=== PATIENT | female | born 1985 | race Caucasian/White ===

== ENCOUNTER 2017-03-10 22:31 | Emergency (ER) | payer OTHER ==
[~2017-03-10] VITALS: Ht 165.1 cm; Wt 53.2 kg
[2017-03-10 23:29] LABS: BASOPHIL COUNT 0.1 K/uL (0-0.1); EOSINOPHIL (%) 1.5 % (0-5); EOSINOPHIL COUNT 0.2 K/uL (0-0.3); IMMATURE GRANULOCYTE (%) 0.4 % (0.0-0.7); INSTRUMENT ABS NEUTROPHIL CT 5.9 K/uL; LYMPHOCYTE COUNT 2.8 K/uL (1.0-2.8); MCH 27.1 PG (29.0-34.0); MCHC 32.8 G/DL (30.0-36.0); MCV 82.6 FL (83-99); MEAN PLAT.VOLUME 10.4 uM^3 (9.5-12.4); MONOCYTE (%) 7.8 % (3-12); MONOCYTE COUNT 0.8 K/uL (0-0.8); NEUTROPHIL (%) 60.4 % (45-76); NEUTROPHIL COUNT 5.9 K/uL (1.8-6.4); PLATELET COUNT 237 K/uL (156-360); RBC DIS.WIDTH-CV 12.8 % (11.8-14.6); RBC DIS.WIDTH-SD 38.9 % (39-53); RED BLOOD COUNT 4.72 M/uL (3.80-5.20); WHITE BLOOD COUNT 9.7 K/uL (4.1-10.2)
[2017-03-10 23:40] LABS: D-DIMER ELISA < 0.15 mg/L FEU (< 0.57)
[2017-03-10 23:43] LABS: CHLORIDE 104 mEq/L (99-109); POTASSIUM 3.4 mEq/L (3.7-5.4); SODIUM 137 mEq/L (136-147)
[2017-03-10 23:45] LABS: GLUCOSE 100 mg/dL (70-99)
[2017-03-10 23:46] LABS: ANION GAP 12 MEQ/L (2-14)
[2017-03-10 23:48] LABS: GFR ESTIMATE (CALCULATED) > 59 mL/min/
[2017-03-10 23:49] LABS: UREA NITROGEN (BUN) 17 mg/dL (9-23)
[2017-03-10 23:51] LABS: TROP-I INTERPRETATION NEGATIVE; TROPONIN-I < 0.01 ng/mL (0.0-0.30)
[2017-03-11] MEDS ORDERED: XANAX0.25 MG PO (00:35)
[2017-03-11 01:07] VITALS: BP 120/84
== END 2017-03-11 01:10 | disposition home or self-care (01) ==
LOC: EME 22:31
PROVIDERS: Emergency Medicine
DX: R07.9 Chest pain, unspecified (principal)
CPT/HCPCS: 71020; 80048; 84484; 85025; 85379; 93005; 99281; 99284

== ENCOUNTER 2017-12-27 01:45 | Inpatient (IN) | payer BC ==
[2017-12-27] VITALS (23 sets, daily range): BP systolic 104–129; BP diastolic 59–81
[~2017-12-27] VITALS: Ht 165.1 cm; Wt 61.2 kg
[~2017-12-27 01:45] MED LIST: XANAX0.25 MG PO
[2017-12-27] MEDS ORDERED: PRENATAL TABLE1 EAC3 PO (02:40)
[2017-12-27 03:37] LABS: BASOPHIL (%) 0.6 % (0-1); BASOPHIL COUNT 0.1 K/uL (0-0.1); EOSINOPHIL (%) 1.7 % (0-5); EOSINOPHIL COUNT 0.2 K/uL (0-0.3); HEMATOCRIT 37.3 % (36.0-46.0); HEMOGLOBIN 12.2 G/DL (11.9-15.5); IMMATURE GRANULOCYTE (%) 1.6 % (0.0-0.7); LYMPHOCYTE (%) 22.3 % (15-42); LYMPHOCYTE COUNT 2.4 K/uL (1.0-2.8); MCH 28.1 PG (29.0-34.0); MCHC 32.7 G/DL (30.0-36.0); MCV 85.9 FL (83-99); MONOCYTE (%) 7.5 % (3-12); MONOCYTE COUNT 0.8 K/uL (0-0.8); NEUTROPHIL (%) 66.3 % (45-76); NEUTROPHIL COUNT 7.2 K/uL (1.8-6.4); PLATELET COUNT 253 K/uL (156-360); RBC DIS.WIDTH-CV 13.6 % (11.8-14.6); RBC DIS.WIDTH-SD 42.4 % (39-53); RED BLOOD COUNT 4.34 M/uL (3.80-5.20); WHITE BLOOD COUNT 10.8 K/uL (4.1-10.2)
[2017-12-27] MEDS ORDERED: IBUPROFEN800 MG PO (16:17)
[2017-12-28 08:04] VITALS: BP 111/71
[2017-12-28 22:33] VITALS: BP 122/66
[2017-12-29 07:45] VITALS: BP 106/77
[2017-12-29 13:55] VITALS: BP 117/82
== END 2017-12-29 15:55 | disposition home or self-care (01) | DRG 775 ==
LOC: LDRP-OP 01:45 → 2WEST 01:46 → LDRP-OP 03-02 11:40
PROVIDERS: Advanced Practice Midwife
PROC: 10E0XZZ Delivery of Products of Conception, External Approach (ICD-10-PCS; principal; 2017-12-27)
PROC: 00HU33Z Insertion of Infusion Device into Spinal Canal, Percutaneous Approach (ICD-10-PCS; principal; 2017-12-27)
PROC: 0HQ9XZZ Repair Perineum Skin, External Approach (ICD-10-PCS; principal; 2017-12-27)
PROC: 3E0R3BZ Introduction of Anesthetic Agent into Spinal Canal, Percutaneous Approach (ICD-10-PCS; principal; 2017-12-27)
DX: O70.0 First degree perineal laceration during delivery (principal); O99.824 Streptococcus B carrier state complicating childbirth; O99.344 Other mental disorders complicating childbirth; F41.9 Anxiety disorder, unspecified; Z3A.39 39 weeks gestation of pregnancy; Z37.0 Single live birth
CPT/HCPCS: 85025; C1755; J0595; J2540; J7120